=== PATIENT | female | born 1990 | race Caucasian/White ===

== ENCOUNTER 2022-11-03 22:11 | Emergency (ER) | payer MEDICAID ==
[2022-11-03] MEDS ORDERED: Acetaminophen/oxyCODONE 325-5 MG Tab PO ONE (22:48)
== END 2022-11-04 01:40 | disposition home or self-care (01) ==
LOC: JD.ED 22:11
DX: S93.335A Other dislocation of left foot, initial encounter (principal); E66.9 Obesity, unspecified; Z68.43 Body mass index [BMI] 50.0-59.9, adult; W00.0XXA Fall on same level due to ice and snow, initial encounter
CPT/HCPCS: 29515; 73590; 73610; 73630; 73700; 99284; A9270; 99283